=== PATIENT | female | born 1950 | race Caucasian/White ===

== ENCOUNTER → 2017-04-07 | Outpatient (POV) | payer MEDICARE, OTHER, SELFPAY | PROVIDERS: Visit Provider Podiatrist ==

== ENCOUNTER → 2017-04-21 | Outpatient (POV) | payer MEDICARE, OTHER, SELFPAY | PROVIDERS: Visit Provider Podiatrist ==

== ENCOUNTER → 2019-12-31 09:23 | Outpatient (CLI) | payer MEDICARE, OTHER, SELFPAY ==
--- NOTE | 2019-12-31 09:28 | XR_ITS ---
PROCEDURE: XR DEXA AXIAL SKELETON CLINICAL HISTORY: POST MENOPAUSAL, patient currently on calcium and vitamin-D COMPARISON: CR BONE3 BONE DENSITOMETRY(HIP:LT SPINE from 12/08/2016 FINDINGS: The total right hip BMD is 0.877 grams/centimeter squared with a T-score -0.5. The right femoral neck is 0.672 grams/centimeter squared with a T-score of -1.6. The total left hip BMD is 0.858 grams/centimeter squared with a T-score of -0.7 the left femoral neck is 0.710 grams/centimeter squared and the T-score is -1.2.. The lumbar spine BMD is 1.108 grams/centimeter squared with a T-score of 0.6.. IMPRESSION: Normal values lumbar spine and mild osteopenia both hips with slight decrease in T-scores for lumbar spine and bilateral hips compared to the previous study Based on these results a follow-up exam is recommended in 2 year. Dictated by: Dr. Rodney Taveras MD 12/31/2019 12:09 Dr. Rodney Taveras MD in [facility] 12/31/2019 12:09
--- NOTE | 2019-12-31 09:29 | MM_ITS ---
PROCEDURE: MM DIG SCREENING MAMM BI W/CAD Digital Breast Tomosynthesis Included CLINICAL INDICATION: SCREENING There is no personal or family history of breast cancer. COMPARISON: MG DMSB DIG MAMM-SCREEN ISAI W/CAD from 12/08/2016 TECHNIQUE: Standard CC and MLO images and 3D Tomosynthesis was obtained. R2 CAD reviewed. FINDINGS: Scattered fibroglandular densities are seen in both breasts on a background of fatty breast parenchyma. There are few benign-appearing microcalcifications in each breast. The nipples appear to be slightly inverted bilaterally and this was noted previously. There is no suspicious lesion and no suspicious microcalcifications. IMPRESSION: Fibrofatty parenchyma with no suspicious lesions seen BI-RAD Category: 2 Benign Finding(s) FOLLOW-UP: 1YR 1 Year Follow-up (A letter has been sent to the patient regarding results of the study.) Dictated by: Dr. Rodney Taveras MD 12/31/2019 11:01 Dr. Rodney Taveras MD in [facility] 12/31/2019 11:01
== END ==
PROVIDERS: PCP Family Medicine; Visit Provider Family Medicine
DX: Z12.31 Encounter for screening mammogram for malignant neoplasm of breast (principal); Z13.820 Encounter for screening for osteoporosis; Z78.0 Asymptomatic menopausal state
CPT/HCPCS: 77063; 77067; 77080

== ENCOUNTER → 2020-07-01 09:33 | Outpatient (CLI) | payer MEDICARE, OTHER, SELFPAY ==
--- NOTE | 2020-07-01 09:58 | ECG_ITS ---
APPROVED REPORT Exam: Resting ECG HR:86 bpm ECG Measurements Heart Rate 86 AXES DC 172 P 60 QRSd 66 QRS 54 QT 334 T 31 QTc 399 Conclusion Normal sinus rhythm Late r wave progression, no changes from prior Abnormal ECG Electronically signed by : Brayan Kendrick, 07/01/2020 10:18:25
== END ==
PROVIDERS: PCP Family Medicine; Visit Provider Ophthalmology
DX: Z01.818 Encounter for other preprocedural examination (principal)
CPT/HCPCS: 93005

== ENCOUNTER → 2021-04-05 09:01 | Outpatient (CLI) | payer MEDICARE, OTHER, SELFPAY | PROVIDERS: PCP Family Medicine; Visit Provider Nurse Practitioner | DX: U07.1 COVID-19 (principal) | CPT/HCPCS: C9803; U0003; U0005 ==

== ENCOUNTER → 2021-07-07 08:32 | Outpatient (CLI) | payer MEDICARE, OTHER, SELFPAY ==
[2021-07-07 08:38] LABS: Microscopic, Urine URINE MICROSCOPIC (MICROSCOPIC)
--- NOTE | 2021-07-07 09:07 | XR_ITS ---
FINAL REPORT TECHNIQUE: Bone mineral density was calculated of the lumbar spine and hip. CLINICAL HISTORY: post menopausal COMPARISON: December 31, 2019 FINDINGS: Using L1-4, the bone mineral density of the spine is 1.171 g/cm2, corresponding to T-score of 1.1. Was previously 1.108 corresponding with a T-score of -0.6. Somewhat improved but may be falsely elevated due to hypertrophic changes. Using the right hip, the bone mineral density of the femoral neck is 0.726 g/cm2, corresponding to a T-score of -1.1. Was previously 0.672 corresponding with a T-score of-1.6. Somewhat improved. IMPRESSION: Diminished bone mineral density of the left hip consistent with osteopenia. FRAX 10 year fracture risk is 8.7% for major osteoporotic fracture. Reviewed, Interpreted and Dictated by Félix Garcia III, MD Transcribed by Laury Vazquez Authenticated by Félix Garcia III, MD on 07/07/2021 11:29:08 AM [facility]
--- NOTE | 2021-07-07 09:09 | MM_ITS ---
PROCEDURE INFORMATION: Exam: MG Bilateral Screening 3D Mammography Exam date and time: 07/07/2021 9:09 AM Age: 71 years old Clinical indication: Encounter for screening mammogram for malignant neoplasm of breast TECHNIQUE: Imaging protocol: Bilateral Screening tomosynthesis and 2D mammography including computer-aided detection (CAD) when performed. COMPARISON: 1. MG MM DIG SCREENING MAMM BI W/CAD 12/31/2019 9:34 AM 2. MG DMSB DIG MAMM-SCREEN ISAI W/CAD 12/08/2016 2:27 PM FINDINGS: MAMMOGRAPHY: Breast composition: There are scattered areas of fibroglandular density. Mass: No suspicious masses. Architectural distortion: No suspicious distortion. Calcifications: No suspicious calcifications. Asymmetric density: None. Skin thickening: None. Axillary adenopathy: None. IMPRESSION: No mammographic evidence of malignancy. Annual screening is recommended unless otherwise clinically indicated. ASSESSMENT: BI-RADS Category 1: Negative
[2021-07-07 10:11] LABS: Anion Gap 13.3 mEq/L (5-15); Blood Urea Nitrogen 21 mg/dl (7-17); Calcium 9.7 mg/dl (8.4-10.2); Carbon Dioxide 30 mmol/L (22.0-30.0); Chloride 103 mmol/L (98-107); Estimated Glomerular Filt Rate 71 ml/min (>60); GFR (African American) 86 ML/MIN (>60); Glucose 120 mg/dl (74-100); Potassium 5.3 mmoL/L (3.5-5.1); Sodium 141 mmol/L (136-145)
[2021-07-07 10:42] LABS: Appearance,Urine CLEAR (Clear); Bilirubin,Urine Negative (Negative); Blood, Urine Negative (Negative); Color,Urine YELLOW (Yellow); Glucose,Urine (UA) Negative (Negative); Ketones,Urine Negative (Negative); Leukocyte Esterase,Urine 1+ (Negative); Nitrate,Urine Negative (Negative); PH,Urine 6.5 (5.0-8.5); Protein,Urine Negative (Negative); Urobilinogen,Urine 0.2 EU/dl (0.2)
[2021-07-07 10:59] LABS: Bacteria,Urine 1+ /lpf; RBC,Urine Occasional #/hpf (0-3)
== END ==
PROVIDERS: Nurse Practitioner Family; PCP Family Medicine; Visit Provider Family Medicine
DX: Z12.31 Encounter for screening mammogram for malignant neoplasm of breast (principal); Z78.0 Asymptomatic menopausal state; R82.81 Pyuria; E87.5 Hyperkalemia; B96.20 Unspecified Escherichia coli [E. coli] as the cause of diseases classified elsewhere
CPT/HCPCS: 36415; 77063; 77067; 77080; 80048; 81001; 87086; 87088; 87186

== ENCOUNTER 2023-06-28 10:03 | Outpatient (CLI) | payer MEDICARE, OTHER, SELFPAY ==
--- NOTE | 2023-06-28 10:12 | MM_ITS ---
PROCEDURE INFORMATION: Exam: MG Bilateral Screening 3D Mammography Exam date and time: 06/28/2023 10:07 AM Age: 73 years old Clinical indication: Screening mammogram TECHNIQUE: Imaging protocol: Bilateral Screening tomosynthesis and 2D mammography including computer-aided detection (CAD) when performed.Limited assessment due to difficulty positioning the patient. COMPARISON: 1. MG MM DIG SCREENING MAMM BI W/CAD 07/07/2021 9:19 AM 2. MG MM DIG SCREENING MAMM BI W/CAD 12/31/2019 9:34 AM 3. MG DMSB DIG MAMM-SCREEN ISAI W/CAD 12/08/2016 2:27 PM FINDINGS: MAMMOGRAPHY: Breast composition: There are scattered areas of fibroglandular density. Mass: None. Architectural distortion: No new or suspicious architectural distortion. Calcifications: No new or suspicious calcifications are present Asymmetric density: No new or suspicious asymmetric density is present Skin thickening: None. Axillary adenopathy: None. IMPRESSION: No mammographic evidence of malignancy. Recommend annual screening mammography unless otherwise clinically indicated. ASSESSMENT: BI-RADS category 1: Negative
== END 2023-06-28 23:59 ==
PROVIDERS: PCP Family Medicine; Visit Provider Family Medicine
DX: Z12.31 Encounter for screening mammogram for malignant neoplasm of breast (principal)
CPT/HCPCS: 77063; 77067

== ENCOUNTER 2023-07-31 14:45 | Emergency (ER) | payer MEDICARE, OTHER, SELFPAY ==
[2023-07-31] VITALS (16 sets, daily range): BP systolic 100–133; BP diastolic 32–74; PULSE 63–101; RESP 14–20; TEMP 36.4; O2SAT 95–98; BMI 30.7
--- NOTE | 2023-07-31 15:10 | PC.NURSE ---
Mario ZACARIAS at [facility] for pt eval
--- NOTE | 2023-07-31 15:14 | ED_ITS ---
<Statement entered by Melinda Martínez DO - 08/01/23 14:55> I was consulted by the ANEUDY, and we discussed the complexity of the problems being addressed. I approved the treatment and management plan for this patient's care in the emergency department, thus performing a substantive portion of the medical decision making. Melinda Martínez DO Discharge Plan Disposition Patient Disposition: Xfer Other Condition: Serious Prescriptions Prescriptions: No Action clopidogrel 75 mg tablet 75 mg PO DAILY 90 Days Patient Comments: atorvastatin 40 mg tablet 40 mg PO HS 90 Days Patient Comments: lisinopril 20 mg tablet 20 mg PO BID timolol maleate 0.5 % drops OPHTHALMIC (DME) pen needle, diabetic 31 gauge x 5/16 needle See Rx Instructions .ROUTE .MEDSUPPLY Qty: 1,200 Rx Instructions: As directed insulin degludec 200 unit/mL (3 mL) insulin pen 26 unit SQ ONCE cholecalciferol (vitamin D3) 25 mcg (1,000 unit) capsule 25 mcg PO DAILY Patient Comments: States she is taking 1,200 units daily dorzolamide-timolol 22.3-6.8 mg/mL drops 1 drp OPHTHALMIC Patient Comments: INSTILL 1 DROP INTO BOTH EYES 2 TIMES A DAY Referrals Follow up/Referrals: Heber Peterson MD [Primary Care Provider] - See instructions Clinical Impressions Clinical Impression: Choledocholithiasis, Acute gallstone pancreatitis Cholelithiasis Qualifiers: Cholelithiasis location: gallbladder Stand Alone Forms Stand Alone Forms: Transfer Record - ED Instructions Patient Instructions: DI for Diarrhea and Traveler's Diarrhea -- Adult, DI for Diarrhea and Traveler's Diarrhea -- Child, DI for Nausea -- Adult, DI for Nausea -- Child Discharge ED Provider: Melinda Martínez General Adult HPI <HORACE Carl - Last Filed: 07/31/23 19:39> General Chief complaint: Nausea/Vomiting/Diarrhea Stated complaint: vomitting, back pain Time Seen by Provider: 07/31/23 14:51 Mode of Arrival: Ambulatory Source of Information: Patient Limitations: No Limitations Description of Symptoms (Recalled from ER Triage Doc. by RN): pt reports nausea, vomiting, and lower back pain in the center of her back since 9am, denies diarrhea, denies any injury, denies blood in her vomit, denies any abd pain History of Present Illness HPI narrative: Patient presents for nausea vomiting that began at 9 AM this morning. Patient also reports very low back pain in the center of her back but denies diarrhea chest pain shortness of breath fever chills hemoptysis hematochezia melena dysuria. Related Data Home Medications Medication Instructions Recorded Confirmed atorvastatin 40 mg tablet 40 mg PO HS Cholesterol 90 days 06/27/17 05/31/23 clopidogrel 75 mg tablet 75 mg PO DAILY Blood thinner 90 06/27/17 05/31/23 days lisinopril 20 mg tablet 20 mg PO BID htn 10/11/18 05/31/23 pen needle, diabetic 31 gauge x #1,200 ea 06/26/19 05/31/23/16 timolol maleate 0.5 % eye drops ophthalmic (eye) 06/26/19 05/31/23 cholecalciferol (vitamin D3) 25 25 mcg PO DAILY 01/08/20 05/31/23 mcg (1,000 unit) capsule dorzolamide 22.3 mg-timolol 6.8 1 drp ophthalmic (eye) 08/19/21 05/31/23 mg/mL eye drops insulin degludec 200 unit/mL (3 26 unit SQ ONCE 08/19/21 05/31/23 mL) subcutaneous pen Allergies Allergy/AdvReac Type Severity Reaction Status Date / Time No Known Allergies Allergy Verified 05/31/23 10:15 [facility] <HORACE Carl - Last Filed: 07/31/23 19:39> [facility] Disclaimer: The information contained in this section may have been updated after the patient was seen, as this information can be updated by other users. Medical History CVA (cerebral vascular accident) HLD (hyperlipidemia) Hypertension T2DM (type 2 diabetes mellitus) Surgical History H/O tubal ligation Family History Other Diabetes Hyperlipidemia Hypertension Social History Smoking Status: Never smoker alcohol intake: never substance use type: denies use current occupational status: retired Travel in the last 8 weeks: None <HORACE Carl - Last Filed: 07/31/23 19:39> ROS Obtained: Yes Systems reviewed as appropriate & no additional complaints except as documented Physical Exam <HORACE Carl - Last Filed: 07/31/23 19:39> General General appearance: alert and in no apparent distress Head Head exam: atraumatic and normal inspection Eye Eye exam: Present normal appearance, PERRL and EOMI ENT ENT exam: Present normal exam, normal oropharynx and mucous membranes moist Neck Neck exam: Present normal inspection and full ROM Chest Chest inspection: Present normal inspection and symmetric chest wall rise Respiratory Respiratory exam: Present normal lung sounds bilaterally; Absent respiratory distress Cardiovascular Cardiovascular exam: Present regular rate and normal rhythm Abdominal Exam Abdominal exam: Present soft, tenderness (Very mild diffuse tenderness to palpation) and normal bowel sounds; Absent distention, guarding, rebound or rigidity Extremities Exam Extremities exam: Present normal inspection, full ROM and other (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 Victor Manuel Inquiry Pt receiving controlled substance: No Vital Signs: 07/31/23 14:47 07/31/23 15:31 07/31/23 16:01 Temperature 97.6 F Temperature Source Oral Pulse Rate 81 96 H Pulse Rate [Left Radial] 63 Respiratory Rate 18 Blood Pressure 128/48 L 124/74 Blood Pressure [Right Arm] 127/63 Blood Pressure Mean 74 79 Blood Pressure Mean [Right Arm] 84 Blood Pressure Source [Right Arm] Automatic Cuff Blood Pressure Position [Right Arm] Sitting 02 Sat by Pulse Oximetry 97 98 96 Oxygen Delivery Method Room Air 07/31/23 16:30 07/31/23 18:09 07/31/23 18:30 Temperature Temperature Source Pulse Rate 101 H 96 H 95 H Pulse Rate [Left Radial] Respiratory Rate 18 18 Blood Pressure 110/32 L 104/49 L 111/60 Blood Pressure [Right Arm] Blood Pressure Mean 59 67 70 Blood Pressure Mean [Right Arm] Blood Pressure Source [Right Arm] Blood Pressure Position [Right Arm] 02 Sat by Pulse Oximetry 97 98 95 Oxygen Delivery Method 07/31/23 19:00 07/31/23 19:30 07/31/23 20:00 Temperature Temperature Source Pulse Rate 86 82 84 Pulse Rate [Left Radial] Respiratory Rate 18 20 16 Blood Pressure 101/66 L 118/66 127/74 Blood Pressure [Right Arm] Blood Pressure Mean 77 81 91 Blood Pressure Mean [Right Arm] Blood Pressure Source [Right Arm] Blood Pressure Position [Right Arm] 02 Sat by Pulse Oximetry 95 96 97 Oxygen Delivery Method Room Air Room Air Room Air 07/31/23 20:30 07/31/23 21:00 07/31/23 21:33 Temperature Temperature Source Pulse Rate 87 83 83 Pulse Rate [Left Radial] Respiratory Rate 20 14 Blood Pressure 100/60 L 110/65 133/69 Blood Pressure [Right Arm] Blood Pressure Mean 76 72 Blood Pressure Mean [Right Arm] Blood Pressure Source [Right Arm] Blood Pressure Position [Right Arm] 02 Sat by Pulse Oximetry 96 98 97 Oxygen Delivery Method Room Air Room Air 07/31/23 22:00 07/31/23 22:30 07/31/23 23:00 Temperature Temperature Source Pulse Rate Pulse Rate [Left Radial] Respiratory Rate Blood Pressure 111/64 117/65 103/57 L Blood Pressure [Right Arm] Blood Pressure Mean 82 80 73 Blood Pressure Mean [Right Arm] Blood Pressure Source [Right Arm] Blood Pressure Position [Right Arm] 02 Sat by Pulse Oximetry Oxygen Delivery Method 07/31/23 23:30 08/01/23 00:00 08/01/23 00:30 Temperature Temperature Source Pulse Rate 74 Pulse Rate [Left Radial] Respiratory Rate Blood Pressure 123/61 117/59 L 123/61 Blood Pressure [Right Arm] Blood Pressure Mean 79 79 Blood Pressure Mean [Right Arm] Blood Pressure Source [Right Arm] Blood Pressure Position [Right Arm] 02 Sat by Pulse Oximetry 96 Oxygen Delivery Method 08/01/23 01:07 08/01/23 02:00 08/01/23 02:31 Temperature 98.5 F Temperature Source Pulse Rate 72 72 66 Pulse Rate [Left Radial] Respiratory Rate 18 Blood Pressure 124/60 131/59 L 131/56 L Blood Pressure [Right Arm] Blood Pressure Mean Blood Pressure Mean [Right Arm] Blood Pressure Source [Right Arm] Blood Pressure Position [Right Arm] 02 Sat by Pulse Oximetry 94 L 95 Oxygen Delivery Method Lab Data Lab results reviewed: Yes I reviewed the patient's lab results. Lab Results 07/31/23 15:20: Urine Color Yellow, Urine Appearance Sl cloudy, Urine pH 7.5, Ur Specific [place] 1.015, Urine Protein Trace, Urine Glucose (UA) Negative, Urine Ketones Negative, Urine Blood 1+, Urine Nitrate Negative, Urine Bilirubin 1+ A, Urine Urobilinogen 1.0, Ur Leukocyte Esterase Negative, Urine RBC Occasional, Urine WBC Occasional, Ur Squamous Epith Cells Occasional, Amorphous Sediment 2+, Urine Bacteria Trace 07/31/23 15:30: WBC 14.3 H, RBC 4.36, Hgb 14.0, Hct 43.4, MCV 99.6 H, MCH 32.2 H , MCHC 32.3, RDW 12.8, Plt Count 252, MPV 8.9, Neut % (Auto) 92.4 H, Lymph % (Auto) 3.6 L, [place] % (Auto) 2.9, Eos % (Auto) 0.8, Baso % (Auto) 0.3, Neut # (Auto) 13.2 H, Lymph # (Auto) 0.5 L, [place] # (Auto) 0.4, Eos # (Auto) 0.1, Baso # (Auto) 0.0, Total Counted 100, Neutrophils % (Manual) 89 H, Lymphocytes % (Manual) 9 L, Monocytes % (Manual) 2, Platelet Estimate Normal, RBC Morphology Normal, Sodium 141, Potassium 3.3 L, Chloride 105, Carbon Dioxide 29, Anion Gap 10.3, BUN 26 H, Creatinine 1.00, Estimated Creat Clear 55, Estimated GFR 55 L, Est GFR ( Amer) 66, Glucose 182 H, Calcium 10.5 H, Magnesium 1.9, Total Bilirubin 2.8 H, AST 648 H*, ALT 529 H*, Alkaline Phosphatase 177 H, Total Protein 7.5, Albumin 4.5, Globulin 3.0, Albumin/Globulin Ratio 1.5, Lipase 44100 H 07/31/23 15:45: SARS-CoV-2 (PCR) Not detected, Influenza A Untype (PCR) Not detected, Influenza Type B (PCR) Not detected 07/31/23 17:48: Lactate 3.0 H 07/31/23 22:08: Lactate 1.9 07/31/23 15:30 07/31/23 15:30 Orders (Tests/Meds): ED MEDICATIONS Discontinued Medications Generic Name Dose Route Start Last Admin Trade Name Freq PRN Reason Stop Dose Admin Acetaminophen 1,000 mg 07/31/23 15:16 07/31/23 15:23 Acetaminophen 1,000mg/100ml Vial IV 07/31/23 15:17 1,000 mg ONCE ONE Administration Lactated Ringer's 1,000 mls @ 999 mls/hr 07/31/23 15:16 07/31/23 15:23 Lactated Ringer's 1000 Ml Bag IV 07/31/23 16:16 999 mls/hr .Q1H1M ONE Administration Piperacillin Sod/Tazobactam 50 mls @ 100 mls/hr 07/31/23 17:00 07/31/23 22:42 Sod 3.375 gm/ Sodium Chloride IV 08/10/23 16:59 100 mls/hr Q6H JIMMY Administration Lactated Ringer's 2,070 mls @ 1,035 mls/hr 07/31/23 16:53 07/31/23 23:15 Lactated Ringer's 1000 Ml Bag 30 ml/kg infuse over 2 hr (2070 ml) 07/31/23 18:52 Not Given IV .Q2H ONE Lactated Ringer's 1,000 mls @ 100 mls/hr 07/31/23 22:45 07/31/23 23:15 Lactated Ringer's 1000 Ml Bag IV 08/30/23 22:44 100 mls/hr .Q10H JIMMY Administration Iopamidol 75 ml 07/31/23 16:19 07/31/23 16:20 Iopamidol-370 (76%);100ml Bottle IV 07/31/23 16:20 75 ml ONCE ONE Administration Ketorolac Tromethamine 15 mg 07/31/23 15:16 07/31/23 15:23 Ketorolac 30mg/Ml Vial IV 07/31/23 15:17 15 mg ONCE ONE Administration Ondansetron HCl 4 mg 07/31/23 15:16 07/31/23 15:23 Ondansetron 4mg/2ml Vial IV 07/31/23 15:17 4 mg ONCE ONE Administration Ondansetron HCl 8 mg 07/31/23 17:10 07/31/23 17:12 Ondansetron 4mg/2ml Vial IV 07/31/23 17:11 8 mg ONCE ONE Administration Sodium Chloride 10 ml 07/31/23 16:19 07/31/23 16:20 Sodium Chloride 0.9% 10ml Syr (Rad Only) IV 07/31/23 16:20 10 ml ONCE ONE Administration ORDERS Category Date Time Status CT abdomen pelvis w con Stat Cat Scan 07/31/23 15:47 Completed US gallbladder Stat Exams 07/31/23 16:13 Completed CBC w/Auto Diff [Complete Blood Count Auto Diff] Stat Lab 07/31/23 15:30 Completed CMP [Comprehensive Metabolic Panel] Stat Lab 07/31/23 15:30 Completed Lactic Acid Follow Up (RFLX 1) Stat Lab 07/31/23 22:08 Completed Lactic Acid Stat Lab 07/31/23 17:48 Completed Lipase Stat Lab 07/31/23 15:30 Completed Magnesium Stat Lab 07/31/23 15:30 Completed Rapid PCR Covid and Flu A/B Stat Lab 07/31/23 15:45 Completed UA [Urinalysis and Microscopic] Stat Lab 07/31/23 15:20 Completed Blood Culture Stat Micro 07/31/23 17:48 Received Medical Decision Narrative: In summary patient is a 73-year-old female who presents to the emergency department for evaluation of nausea vomiting and low back pain. Patient is hemodynamically stable upon arrival, afebrile. Physical exam is remarkable for tenderness to palpation of the right paraspinal muscles without any radicular or neuropathic signs. 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 Patient has no CVA tenderness to percussion. Abdominal exam is mildly diffusely tender with no rebound no guarding no rigidity and normal bowel sounds. Differential diagnosis includes urinary tract infection, acute cholecystitis, gastroenteritis, small bowel obstruction is less likely as the patient has never had abdominal surgery etc. Initial workup will be conducted with hematologic labs urinalysis CT scan abdomen pelvis with contrast. Initial interventions include crystalloid bolus, Toradol Tylenol and Zofran. Initial workup reviewed by me shows no elevated white count with a left shift, transaminitis hyperbilirubinemia, and elevated lipase at the remainder of her laboratory investigations are nonactionable. My informal review of her CT scan abdomen pelvis shows a distended gallbladder with stones and peripancreatic stranding with the radiologist read pending. I subsequently ordered a right upper quadrant ultrasound that showed normal biliary tree, stones and a dilated gallbladder without any evidence of wall thickening and a normal pancreatic duct on ultrasound according to the radiologist.. Upon repeat evaluation patient has had resolution of her pain however has still had fairly persistent nausea that is currently controlled after second dose of Zofran. Given this he has shared decision making I discussed with the patient the need for evaluation by brake tester and possibly general surgery. Patient was agreeable to transfer. We were able to find a transfer to the [facility] for [place] <Shubham Mendoza MD - Last Filed: 08/01/23 02:34> Vital Signs: 07/31/23 14:47 07/31/23 15:31 07/31/23 16:01 Temperature 97.6 F Temperature Source Oral Pulse Rate 81 96 H Pulse Rate [Left Radial] 63 Respiratory Rate 18 Blood Pressure 128/48 L 124/74 Blood Pressure [Right Arm] 127/63 Blood Pressure Mean 74 79 Blood Pressure Mean [Right Arm] 84 Blood Pressure Source [Right Arm] Automatic Cuff Blood Pressure Position [Right Arm] Sitting 02 Sat by Pulse Oximetry 97 98 96 Oxygen Delivery Method Room Air 07/31/23 16:30 07/31/23 18:09 07/31/23 18:30 Temperature Temperature Source Pulse Rate 101 H 96 H 95 H Pulse Rate [Left Radial] Respiratory Rate 18 18 Blood Pressure 110/32 L 104/49 L 111/60 Blood Pressure [Right Arm] Blood Pressure Mean 59 67 70 Blood Pressure Mean [Right Arm] Blood Pressure Source [Right Arm] Blood Pressure Position [Right Arm] 02 Sat by Pulse Oximetry 97 98 95 Oxygen Delivery Method 07/31/23 19:00 07/31/23 19:30 07/31/23 20:00 Temperature Temperature Source Pulse Rate 86 82 84 Pulse Rate [Left Radial] Respiratory Rate 18 20 16 Blood Pressure 101/66 L 118/66 127/74 Blood Pressure [Right Arm] Blood Pressure Mean 77 81 91 Blood Pressure Mean [Right Arm] Blood Pressure Source [Right Arm] Blood Pressure Position [Right Arm] 02 Sat by Pulse Oximetry 95 96 97 Oxygen Delivery Method Room Air Room Air Room Air 07/31/23 20:30 07/31/23 21:00 07/31/23 21:33 Temperature Temperature Source Pulse Rate 87 83 83 Pulse Rate [Left Radial] Respiratory Rate 20 14 Blood Pressure 100/60 L 110/65 133/69 Blood Pressure [Right Arm] Blood Pressure Mean 76 72 Blood Pressure Mean [Right Arm] Blood Pressure Source [Right Arm] Blood Pressure Position [Right Arm] 02 Sat by Pulse Oximetry 96 98 97 Oxygen Delivery Method Room Air Room Air 07/31/23 22:00 07/31/23 22:30 07/31/23 23:00 Temperature Temperature Source Pulse Rate Pulse Rate [Left Radial] Respiratory Rate Blood Pressure 111/64 117/65 103/57 L Blood Pressure [Right Arm] Blood Pressure Mean 82 80 73 Blood Pressure Mean [Right Arm] Blood Pressure Source [Right Arm] Blood Pressure Position [Right Arm] 02 Sat by Pulse Oximetry Oxygen Delivery Method 07/31/23 23:30 08/01/23 00:00 08/01/23 00:30 Temperature Temperature Source Pulse Rate 74 Pulse Rate [Left Radial] Respiratory Rate Blood Pressure 123/61 117/59 L 123/61 Blood Pressure [Right Arm] Blood Pressure Mean 79 79 Blood Pressure Mean [Right Arm] Blood Pressure Source [Right Arm] Blood Pressure Position [Right Arm] 02 Sat by Pulse Oximetry 96 Oxygen Delivery Method 08/01/23 01:07 08/01/23 02:00 08/01/23 02:31 Temperature 98.5 F Temperature Source Pulse Rate 72 72 66 Pulse Rate [Left Radial] Respiratory Rate 18 Blood Pressure 124/60 131/59 L 131/56 L Blood Pressure [Right Arm] Blood Pressure Mean Blood Pressure Mean [Right Arm] Blood Pressure Source [Right Arm] Blood Pressure Position [Right Arm] 02 Sat by Pulse Oximetry 94 L 95 Oxygen Delivery Method Lab Data Lab Results 07/31/23 15:20: Urine Color Yellow, Urine Appearance Sl cloudy, Urine pH 7.5, Ur Specific [place] 1.015, Urine Protein Trace, Urine Glucose (UA) Negative, Urine Ketones Negative, Urine Blood 1+, Urine Nitrate Negative, Urine Bilirubin 1+ A, Urine Urobilinogen 1.0, Ur Leukocyte Esterase Negative, Urine RBC Occasional, Urine WBC Occasional, Ur Squamous Epith Cells Occasional, Amorphous Sediment 2+, Urine Bacteria Trace 07/31/23 15:30: WBC 14.3 H, RBC 4.36, Hgb 14.0, Hct 43.4, MCV 99.6 H, MCH 32.2 H , MCHC 32.3, RDW 12.8, Plt Count 252, MPV 8.9, Neut % (Auto) 92.4 H, Lymph % (Auto) 3.6 L, [place] % (Auto) 2.9, Eos % (Auto) 0.8, Baso % (Auto) 0.3, Neut # (Auto) 13.2 H, Lymph # (Auto) 0.5 L, [place] # (Auto) 0.4, Eos # (Auto) 0.1, Baso # (Auto) 0.0, Total Counted 100, Neutrophils % (Manual) 89 H, Lymphocytes % (Manual) 9 L, Monocytes % (Manual) 2, Platelet Estimate Normal, RBC Morphology Normal, Sodium 141, Potassium 3.3 L, Chloride 105, Carbon Dioxide 29, Anion Gap 10.3, BUN 26 H, Creatinine 1.00, Estimated Creat Clear 55, Estimated GFR 55 L, Est GFR ( Amer) 66, Glucose 182 H, Calcium 10.5 H, Magnesium 1.9, Total Bilirubin 2.8 H, AST 648 H*, ALT 529 H*, Alkaline Phosphatase 177 H, Total Protein 7.5, Albumin 4.5, Globulin 3.0, Albumin/Globulin Ratio 1.5, Lipase 50719 H 07/31/23 15:45: SARS-CoV-2 (PCR) Not detected, Influenza A Untype (PCR) Not detected, Influenza Type B (PCR) Not detected 07/31/23 17:48: Lactate 3.0 H 07/31/23 22:08: Lactate 1.9 Orders (Tests/Meds): ED MEDICATIONS Discontinued Medications Generic Name Dose Route Start Last Admin Trade Name Freq PRN Reason Stop Dose Admin Acetaminophen 1,000 mg 07/31/23 15:16 07/31/23 15:23 Acetaminophen 1,000mg/100ml Vial IV 07/31/23 15:17 1,000 mg ONCE ONE Administration Lactated Ringer's 1,000 mls @ 999 mls/hr 07/31/23 15:16 07/31/23 15:23 Lactated Ringer's 1000 Ml Bag IV 07/31/23 16:16 999 mls/hr .Q1H1M ONE Administration Piperacillin Sod/Tazobactam 50 mls @ 100 mls/hr 07/31/23 17:00 07/31/23 22:42 Sod 3.375 gm/ Sodium Chloride IV 08/10/23 16:59 100 mls/hr Q6H JIMMY Administration Lactated Ringer's 2,070 mls @ 1,035 mls/hr 07/31/23 16:53 07/31/23 23:15 Lactated Ringer's 1000 Ml Bag 30 ml/kg infuse over 2 hr (2070 ml) 07/31/23 18:52 Not Given IV .Q2H ONE Lactated Ringer's 1,000 mls @ 100 mls/hr 07/31/23 22:45 07/31/23 23:15 Lactated Ringer's 1000 Ml Bag IV 08/30/23 22:44 100 mls/hr .Q10H JIMMY Administration Iopamidol 75 ml 07/31/23 16:19 07/31/23 16:20 Iopamidol-370 (76%);100ml Bottle IV 07/31/23 16:20 75 ml ONCE ONE Administration Ketorolac Tromethamine 15 mg 07/31/23 15:16 07/31/23 15:23 Ketorolac 30mg/Ml Vial IV 07/31/23 15:17 15 mg ONCE ONE Administration Ondansetron HCl 4 mg 07/31/23 15:16 07/31/23 15:23 Ondansetron 4mg/2ml Vial IV 07/31/23 15:17 4 mg ONCE ONE Administration Ondansetron HCl 8 mg 07/31/23 17:10 07/31/23 17:12 Ondansetron 4mg/2ml Vial IV 07/31/23 17:11 8 mg ONCE ONE Administration Sodium Chloride 10 ml 07/31/23 16:19 07/31/23 16:20 Sodium Chloride 0.9% 10ml Syr (Rad Only) IV 07/31/23 16:20 10 ml ONCE ONE Administration ORDERS Category Date Time Status CT abdomen pelvis w con Stat Cat Scan 07/31/23 15:47 Completed US gallbladder Stat Exams 07/31/23 16:13 Completed CBC w/Auto Diff [Complete Blood Count Auto Diff] Stat Lab 07/31/23 15:30 Completed CMP [Comprehensive Metabolic Panel] Stat Lab 07/31/23 15:30 Completed Lactic Acid Follow Up (RFLX 1) Stat Lab 07/31/23 22:08 Completed Lactic Acid Stat Lab 07/31/23 17:48 Completed Lipase Stat Lab 07/31/23 15:30 Completed Magnesium Stat Lab 07/31/23 15:30 Completed Rapid PCR Covid and Flu A/B Stat Lab 07/31/23 15:45 Completed UA [Urinalysis and Microscopic] Stat Lab 07/31/23 15:20 Completed Blood Culture Stat Micro 07/31/23 17:48 Received Medical Decision Narrative: In summary patient is a 73-year-old female who presents to the emergency department for evaluation of nausea vomiting and low back pain. Patient is hemodynamically stable upon arrival, afebrile. Physical exam is remarkable for tenderness to palpation of the right paraspinal muscles without any radicular or neuropathic signs. 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 Patient has no CVA tenderness to percussion. Abdominal exam is mildly diffusely tender with no rebound no guarding no rigidity and normal bowel sounds. Differential diagnosis includes urinary tract infection, acute cholecystitis, gastroenteritis, small bowel obstruction is less likely as the patient has never had abdominal surgery etc. Initial workup will be conducted with hematologic labs urinalysis CT scan abdomen pelvis with contrast. Initial interventions include crystalloid bolus, Toradol Tylenol and Zofran. Initial workup reviewed by me shows no elevated white count with a left shift, transaminitis hyperbilirubinemia, and elevated lipase at the remainder of her laboratory investigations are nonactionable. My informal review of her CT scan abdomen pelvis shows a distended gallbladder with stones and peripancreatic stranding with the radiologist read pending. I subsequently ordered a right upper quadrant ultrasound that showed normal biliary tree, stones and a dilated gallbladder without any evidence of wall thickening and a normal pancreatic duct on ultrasound according to the radiologist.. Upon repeat evaluation patient has had resolution of her pain however has still had fairly persistent nausea that is currently controlled after second dose of Zofran. Given this he has shared decision making I discussed with the patient the need for evaluation by brake tester and possibly general surgery. Patient was agreeable to transfer. We were able to find a transfer to the [facility]. Kelly WARREN: I assumed care of the patient at the time of handoff from the prior provider. Presentation is most consistent with acute gallstone pancreatitis without acute cholecystitis. On reassessment patient ivett hemodynamically stable. The bed at never opened up. Instead, the patient was ultimately transferred to [facility], accepting physician Dr. Dafne Lira. Patient discharged in stable condition. I was consulted by the ANEUDY, and we discussed the complexity of the problems being addressed. I approved the treatment and management plan for this patient?s care in the Emergency Department, thus performing a substantive portion of the medical decision making. Shubham Mendoza MD Critical Care <HORACE Carl - Last Filed: 07/31/23 19:39> Critical Care Time Critical Care Time: No
[2023-07-31] MEDS: KETOROLAC 30MG/ML VIAL 15 MG IV (15:23)
[2023-07-31] MEDS: ACETAMINOPHEN 1,000MG/100ML VIAL 1000 MG IV (15:23)
[2023-07-31] MEDS: ONDANSETRON 4MG/2ML VIAL 4 MG IV (15:23)
[2023-07-31] MEDS: LACTATED RINGERS 1000ML 1,000 ML 999 ML IV (15:23)
[2023-07-31 15:26] LABS: Microscopic, Urine URINE MICROSCOPIC (MICROSCOPIC)
[2023-07-31 15:29] LABS: Appearance,Urine SL CLOUDY (Clear); Blood, Urine 1+ (Negative); Color,Urine YELLOW (Yellow); Glucose,Urine (UA) Negative (Negative); Ketones,Urine Negative (Negative); Leukocyte Esterase,Urine Negative (Negative); Nitrate,Urine Negative (Negative); PH,Urine 7.5 (5.0-8.5); Protein,Urine TRACE (Negative); Specific Gravity, Urine 1.015 (1.005-1.030)
[2023-07-31 15:32] LABS: Bilirubin,Urine 1+ (Negative)
[2023-07-31 15:42] LABS: Basophils % 0.3 % (0.1-2.0); Eosinophils # 0.1 K/mm3 (0.0-0.4); Eosinophils % 0.8 % (0.1-12.0); Hematocrit 43.4 % (37.0-47.0); Lymphocytes # 0.5 K/mm3 (0.7-4.5); Lymphocytes % 3.6 % (10-50); Mean Corpuscular HGB Conc 32.3 g/dL (31.8-35.4); Mean Corpuscular Hemoglobin 32.2 pg (27.0-31.2); Mean Corpuscular Volume 99.6 fl (81-99); Mean Platelet Volume 8.9 fl (7.4-10.4); Monocytes # 0.4 K/mm3 (0.1-1.0); Monocytes % 2.9 % (1.7-9.3); Neutrophils # 13.2 K/mm3 (1.8-7.8); Neutrophils % 92.4 % (37.0-80.0); Platelet Count 252 K/mm3 (142-424); Red Blood Count 4.36 M/mm3 (4.20-5.40); Red Cell Distribution Width 12.8 % (11.5-17.5); White Blood Count 14.3 K/mm3 (4.8-10.8)
--- NOTE | 2023-07-31 15:47 | CT_ITS ---
PROCEDURE INFORMATION: Exam: CT Abdomen And Pelvis With Contrast Exam date and time: 07/31/2023 4:09 PM Age: 73 years old Clinical indication: Nausea and vomiting; Abdominal pain; Additional info: Acute abdominal pain nausea vomiting TECHNIQUE: Imaging protocol: Computed tomography of the abdomen and pelvis with contrast. Radiation optimization: All CT scans at this facility use at least one of these dose optimization techniques: automated exposure control; mA and/or kV adjustment per patient size (includes targeted exams where dose is matched to clinical indication); or iterative reconstruction. Contrast material: ISOVUE; Contrast volume: 75 ml; Contrast route: IV; COMPARISON: No relevant prior studies available. FINDINGS: Lungs: Scattered areas of bronchial wall thickening which are likely chronic inflammatory. A few areas of subpleural reticulation are noted, nonspecific. Liver: Normal. Gallbladder and bile ducts: There is cholelithiasis within a mildly distended gallbladder. There is mild central intra and extrahepatic biliary ductal dilatation. Pancreas: Peripancreatic stranding is noted. There is fatty replacement of the pancreas. Spleen: Normal. Adrenal glands: The adrenal glands appear normal. Kidneys and ureters: The kidneys demonstrate thin cortices compatible with atrophy. Stomach and bowel: The stomach, small bowel, and colon are well-distended and show no evidence of wall thickening, masses, or obstruction. Appendix: No evidence of appendicitis. Intraperitoneal space: Unremarkable. Vasculature: There is atherosclerotic disease of the visualized aorta and its major branch vessels. Lymph nodes: Suspect a small lymph node adjacent to the gallbladder (image 36 series 5). Urinary bladder: Unremarkable as visualized. Reproductive: No acute process. Bones/joints: There is diffuse degenerative disease of the visualized osseous structures. Soft tissues: Unremarkable. IMPRESSION: Peripancreatic stranding which could reflect pancreatitis in the appropriate clinical setting. Cholelithiasis within a mildly distended gallbladder.
[2023-07-31 15:49] LABS: MANUAL DIFFERENTIAL MANUAL DIFFERENTIAL (MANUAL DIFF)
[2023-07-31 15:51] LABS: Chloride 105 mmol/L (98-107); Potassium 3.3 mmoL/L (3.5-5.1); Sodium 141 mmol/L (136-145)
[2023-07-31 15:53] LABS: Coronavirus 19, PCR Not Detected (NotDetected); Influenza A, PCR Not Detected (NotDetected); Influenza B, PCR Not Detected (NotDetected)
[2023-07-31 15:54] LABS: Alanine Aminotransferase 529 U/L (12-78); Albumin Level 4.5 g/dl (3.5-5.0); Albumin/Globulin Ratio 1.5 (1.1-1.8); Alkaline Phosphatase 177 U/L (38-126); Anion Gap 10.3 mEq/L (5-15); Aspartate Amino Transferase 648 U/L (14-36); Bilirubin,Total 2.8 mg/dl (0.2-1.3); Blood Urea Nitrogen 26 mg/dl (7-17); Calcium 10.5 mg/dl (8.4-10.2); Carbon Dioxide 29 mmol/L (22.0-30.0); Creatinine Clearance Estimated 55 mL/min (50-200); Estimated Glomerular Filt Rate 55 ml/min (>60); GFR (African American) 66 ML/MIN (>60); Glucose 182 mg/dl (74-100); Total Protein,Serum 7.5 g/dl (6.3-8.2)
[2023-07-31 15:55] LABS: Magnesium 1.9 mg/dl (1.6-2.3)
[2023-07-31 16:02] LABS: Amorphous Sediment,Urine 2+ /lpf; Bacteria,Urine Trace /lpf; RBC,Urine Occasional #/hpf (0-3); Squamous Epithelial Cell,Urine Occasional #/hpf (0-5); WBC,Urine Occasional #/hpf (0-3)
--- NOTE | 2023-07-31 16:13 | US_ITS ---
PROCEDURE INFORMATION: Exam: US Abdomen, Limited; Right Upper Quadrant Exam date and time: 07/31/2023 4:34 PM Age: 73 years old Clinical indication: Nausea and vomiting; Additional info: Right quad pain TECHNIQUE: Imaging protocol: Real time ultrasound of the abdomen with image documentation. Limited exam focused on the right upper quadrant. COMPARISON: CT ABDOMEN PELVIS W CON 07/31/2023 4:09 PM FINDINGS: Liver: The liver appears normal in size and echogenicity, with no evidence of focal hepatic lesions or intrahepatic ductal dilatation. Portal and hepatic veins are patent and show no signs of thrombosis. Gallbladder: There is cholelithiasis within an otherwise normal gallbladder. Biliary ducts: The common bile duct measures within normal limits, and there are no signs of dilatation. Pancreas: Visualized pancreas is unremarkable. Right kidney: The right kidney appears somewhat atrophic without hydronephrosis. IMPRESSION: Distended gallbladder with cholelithiasis.
[2023-07-31] MEDS: SODIUM CHLORIDE 0.9% 10ML SYR (RAD ONLY) 10 ML IV (16:20)
[2023-07-31] MEDS: IOPAMIDOL-370 (76%);100ML BOTTLE 75 ML IV (16:20)
[2023-07-31 16:29] LABS: Lipase 34426 U/L (23-300)
--- NOTE | 2023-07-31 16:35 | PC.NURSE ---
Pt gone for u/s via wheelchair
[2023-07-31 16:38] LABS: Lymphocytes % 9 % (10-50); Monocytes % 2 % (2-9); Neutrophils % 89 % (42-76); Platelet Estimate Normal; RBC Morphology Normal; Total Cells Counted 100
--- NOTE | 2023-07-31 17:01 | PC.NURSE ---
ct rad states that pt was getting up for her ct scan when she assisted pt to the floor in a sitting position due to her weakness, no injuries noted at this time, HS and aware.
[2023-07-31] MEDS: ONDANSETRON 4MG/2ML VIAL 8 MG IV (17:12)
--- NOTE | 2023-07-31 17:17 | PC.NURSE ---
assisted pt to the restroom at this time. pt became nauseous and started vomiting. MD placed new medication orders.
--- NOTE | 2023-07-31 17:28 | PC.NURSE ---
[facility] Advised they would call back when they had someone available to speak
--- NOTE | 2023-07-31 17:40 | PC.NURSE ---
lab aware of blood culture order to collect
--- NOTE | 2023-07-31 17:58 | PC.NURSE ---
Spoke with Amarjit at [facility] transfer center about possible transfer. Waiting on callback at this time.
--- NOTE | 2023-07-31 18:00 | PC.NURSE ---
PA speaking with [facility] at this time
--- NOTE | 2023-07-31 18:08 | PC.NURSE ---
[facility] does not have GI coverage at this time. has a 2-3 week wait list Pt placed on wait list at [facility]
[2023-07-31] MEDS: PIPERCILLIN/TAZO 3.375 GM in 0.9 % SODIUM CHLORIDE 50 ML IV ×2 (18:09→22:42)
--- NOTE | 2023-07-31 18:20 | PC.NURSE ---
Addendum entered by Jemma Moran, EMT 07/31/23 18:21: available at this time Original Note: Called [facility] about possible transfer. Waiting general operations manager back at this time, but was advised there are no immediate beds avai
--- NOTE | 2023-07-31 18:25 | PC.NURSE ---
Called about possible transfer. Waiting trauma surgeon back at this time
--- NOTE | 2023-07-31 18:56 | PC.NURSE ---
Addendum entered by Jemma Moran, EMT 07/31/23 18:57: Dr. Biswas Original Note: Don speaking with [facility] at this time
--- NOTE | 2023-07-31 19:00 | PC.NURSE ---
Mario speaking with Dr. Zimmerman at
--- NOTE | 2023-07-31 19:08 | PC.NURSE ---
Dr. Sauer paged for Mid level
--- NOTE | 2023-07-31 19:15 | PC.NURSE ---
Patient resting in bed voices no concerns/needs at this time.
--- NOTE | 2023-07-31 19:22 | PC.NURSE ---
per mid level, patient accepted by [facility]
--- NOTE | 2023-07-31 20:17 | PC.NURSE ---
face sheet faxed to and confirmation received
--- NOTE | 2023-07-31 20:33 | PC.NURSE ---
Called for an update about a pt bed. Spoke to Valentina, she states they do not have a bed at this time assigned to the pt. She advised me that she will call me back as soon as she has an update. and RN aware. CR
[2023-07-31 21:53] LABS: Reflex Lactic Add Lactic Reflex
[2023-07-31 22:24] LABS: Lactic Acid Follow Up (RFLX 1) 1.9 mmol/L (0.7-2.1)
--- NOTE | 2023-07-31 22:52 | PC.NURSE ---
call from [facility] requesting update on patient and facesheet
[2023-07-31] MEDS: LACTATED RINGERS 1000ML 1,000 ML 100 ML IV (23:15)
--- NOTE | 2023-07-31 23:20 | PC.NURSE ---
called at 2230 to see about update on bed status per family request. still awaiting a clean bed
--- NOTE | 2023-07-31 23:48 | PC.NURSE ---
called for bed update; was told there is a room available for the patient but it has not been cleaned yet. I asked if there was any kind of time frame to know when it would be available and was told they only know it's clean when it says clean. I then asked if it would be this shift before 0700 and was told yes it would be.
[2023-08-01] VITALS: BP 117/59
--- NOTE | 2023-08-01 00:15 | PC.NURSE ---
patient moved to room 1 placed in hospital bed for comfort, recliner placed in room for son
--- NOTE | 2023-08-01 00:15 | PC.NURSE ---
Patient was incontinent, pad was changed and a new one was placed, also patient voided in the bedside commode
[2023-08-01 00:30] VITALS: BP 123/61; PULSE 74; O2SAT 96
--- NOTE | 2023-08-01 00:58 | PC.NURSE ---
checked on patient, all needs are met. call montano within reach.
[2023-08-01 01:07] VITALS: BP 124/60; PULSE 72; O2SAT 94
--- NOTE | 2023-08-01 01:14 | PC.NURSE ---
patient awaiting transfer to once a bed is ready, VS changed to Qh while patient is stable and sleeping per RN
[2023-08-01 02:00] VITALS: BP 131/59; PULSE 72; O2SAT 95
--- NOTE | 2023-08-01 02:11 | PC.NURSE ---
Sowmya from [facility] called and advised that they have a bed available for the pt to go to. Advised RN and . LANI
[2023-08-01 02:31] VITALS: BP 131/56; PULSE 66; RESP 18; TEMP 36.9
--- NOTE | 2023-08-01 02:31 | PC.NURSE ---
EMS notified of need for transport
--- NOTE | 2023-08-01 02:48 | PC.NURSE ---
patient assisted to [facility]
--- NOTE | 2023-08-08 14:20 | PC.NURSE ---
blood culture results discussed with , called [facility] where pt was transferred, pt was dc home on 08/05/2023. Called pt who states that she received antibiotic during her hospital stay, states that 5 days of antibiotics is ok, ntd at this time, discussed with pt if she starts to feel bad to fu with her pcp, pt states that she has a fu with her pcp on .
== END 2023-08-01 03:20 | disposition other institution (70) ==
PROVIDERS: Physician Assistant; Emergency Provider Emergency Medicine; PCP Family Medicine
DX: K85.10 Biliary acute pancreatitis without necrosis or infection (principal); K80.50 Calculus of bile duct without cholangitis or cholecystitis without obstruction; K80.20 Calculus of gallbladder without cholecystitis without obstruction; R11.2 Nausea with vomiting, unspecified; M54.59 Other low back pain; E11.9 Type 2 diabetes mellitus without complications; I10 Essential (primary) hypertension; E78.5 Hyperlipidemia, unspecified; Z79.4 Long term (current) use of insulin
CPT/HCPCS: 36415; 74177; 76705; 80053; 81001; 83605; 83690; 83735; 85007; 85025; 87040; 87636; 96361; 96365; 96375; 96376; 99285; J0131; J2405; J2543; Q9967

== ENCOUNTER 2023-12-26 08:54 | Outpatient (CLI) | payer MEDICARE, OTHER, SELFPAY ==
--- NOTE | 2023-12-26 08:57 | XR_ITS ---
FINAL REPORT TECHNIQUE: Bone densitometry calculations of the lumbar spine and left hip were obtained. CLINICAL HISTORY: OSTEOPENIA COMPARISON: 07/07/2021 FINDINGS: Using L1-4, the bone mineral density of the spine is 1.210 g/cm2, corresponding to T-score of 1.5. Using the right hip, the bone mineral density of the femoral neck is 0.672 g/cm2, corresponding to a T-score of -1.6. NOTE: T-score: Standard deviation compared with peak bone mass of young adult mean. *Following the recommendations of the International Society of Bone densitometry, classification of hip BMD is based on the lower of two T-scores; total hip or femoral neck. IMPRESSION: Diminished bone mineral density of the right hip consistent with osteopenia. Normal bone mineral density of the lumbar spine. Reviewed, Interpreted and Dictated by Melvin Thorne MD Transcribed by Marlyn Roman Authenticated and . [facility]
== END 2023-12-26 23:59 | disposition home or self-care (01) ==
LOC: RAD 08:54
PROVIDERS: PCP Family Medicine; Visit Provider Family Medicine
DX: M85.88 Other specified disorders of bone density and structure, other site (principal)
CPT/HCPCS: 77080

== ENCOUNTER 2024-03-11 10:21 | Emergency (ER) | payer MEDICARE, OTHER, SELFPAY ==
--- OUTSIDE RECORDS SUMMARY | 2024-03-11 10:35 | XMS_ITS ---
Author Organization [facility] Address [address] [facility] [address] [address] [place] [id number] Care Team Providers Care Vp Marketing Name Role Phone Andreia Peterson Primary Care Provider REASON FOR VISIT Test results Encounters Encounter Location Date Provider Diagnosis [facility] [address] [facility] [address] [address] [place] [id number] 01/01/2024 Andreia Peterson PLAN OF TREATMENT Next Appt Details Provider Name:Andreia Burgess, 06/20/2024 09:15:00 AM, [address] [facility] [address] [address], [address], [place], [phone],
--- OUTSIDE RECORDS SUMMARY | 2024-03-11 10:35 | XMS_ITS ---
Author Organization [facility] Address [address] [facility] [address] [facility] [address] [place] [phone] Care Team Providers Care Cylinder Inspector And Tester Name Role Phone Andreia Peterson Primary Care Provider REASON FOR VISIT Test results Encounters Encounter Location Date Provider Diagnosis [facility] [address] [facility] [address] [facility] [address] [facility] [address] [place] [id number] 12/20/2023 Andreia Peterson PLAN OF TREATMENT Next Appt Details Provider Name:Andreia Burgess, 06/20/2024 09:15:00 AM, [address] [facility] [address] [facility] [address] [facility], [address], [place], [phone],
--- OUTSIDE RECORDS SUMMARY | 2024-03-11 10:36 | XMS_ITS | Patient Health Record ---
[facility] Address [address] [place] [id number] Care Team Providers Care Brand Activation Manager Name Role Phone Andreia Peterson Primary Care Provider [phone] ALLERGIES No Known Allergies RESULTS Component Value Reference Range Notes Glycohemoglobin A1c (in hous e) Reviewed date:12/20/2023 07:55:47 PM Interpretation:7.1 Performing Lab: Notes/Report: 7.1 glycohemoglobin 7.1% 5 - 6.5 % P-Comprehensive Metabolic Pa nena (CMP) Reviewed date:12/20/2023 07:55:47 PM Interpretation:gluc 116, bun 25 Performing Lab: Notes/Report: Test performed by [facility] [address] [place] [address] , [address], [place] [address] Johnny Thurman MD, Artificial Inseminator CLIA: [id number] Sodium 141 135-145 mmol/L Potassium 5.0 3.5-5.3 mmol/L Chloride 106 97-108 mmol/L CO2 27 22-32 mmol/L Glucose 116 65-99 mg/dL BUN 25 8-23 mg/dL Creatinine 0.96 0.50-1.00 mg/dL Calcium 10.4 8.6-10.4 mg/dL eGFR by Creatinine 63 >59 mL/min/1.73m2 Protein 7.0 6.0-8.3 g/dL Albumin 4.4 3.5-5.3 g/dL Alkaline Phosphatase 118 35-121 IU/L ALT (SGPT) 20 <5-47 IU/L AST (SGOT) 19 <5-40 IU/L Bilirubin, Total 0.4 <0.2-1.2 mg/dL A/G Ratio 1.7 1.1-2.5 P-Lipid Panel Reviewed date:12/20/2023 07:55:47 PM Interpretation:Normal Performing Lab: Notes/Report: Test performed by [email or web address], [address] , [address], [place] [address] Johnny Thurman MD, Artificial Inseminator CLIA: [id number] Cholesterol 148 <200 mg/dL Triglycerides 149 <150 mg/dL HDL Cholesterol 57 >39 mg/dL Cholesterol / HDL Ratio 2.60 0.00-4.44 Ratio Non-HDL Cholesterol 91 <130 mg/dL LDL Cholesterol (Calculation) 61 <130 mg/dL LDL Cholesterol Levels* Less than 100 mg/dL Optimal 100 to 129 mg/dL Near Optimal/ Above Optimal 130 to 159 mg/dL Borderline High 160 to 189 mg/dL High 190 mg/dL and above Very High * Categories as recommended by the 2004 ATPIII guidelines LDL/HDL Ratio 1.1 <3.3 Ratio LDL Cholesterol Patient History Test Date: 06/20/2023 LDL Results: 66 Units: mg/dL % Change: - Test Date: 12/19/2023 LDL Results: 61 Units: mg/dL % Change: -7% P-Microalbumin/Creatinine, R andom Urine Sample Reviewed date:12/20/2023 07:55:47 PM Interpretation:Normal Performing Lab: Notes/Report: Test performed by [facility] [address] [place] [address] , [address], [place] [address] Johnny Thurman MD, Artificial Inseminator CLIA: [id number] Albumin/Creatinine Ratio, Urine 18 0-30 ug/mg Microalbumin, Urine, Random 1.7 Creatinine, Urine 93.8 Bone density Reviewed date:01/01/2024 08:20:29 PM Interpretation:osteopenia right hip Performing Lab: Notes/Report: osteopenia right hip Bone density osteopenia right hip Urinalysis - Inhouse Reviewed date:06/27/2023 02:46:38 PM Interpretation: Performing Lab: Notes/Report: Color/Clarity yellow/clear Leuk 1+ Nitrite neg Urobili 3.2 Protein neg pH 7.0 Blood neg Sp. Gr. 1.015 Ketone neg Bili neg Gluc neg bacteria WBC RBC Mammogram Reviewed date:07/03/2023 11:00:29 AM Interpretation:Negative, annual f/u Performing Lab: Notes/Report: Negative, annual f/u result Negative, annual f/u P-Microalbumin/Creatinine, R andom Urine Sample Reviewed date:07/06/2023 11:52:55 AM Interpretation:not performed Performing Lab: Notes/Report: not performed Albumin/Creatinine Ratio, Urine Creatinine, Urine Microalbumin, Urine, Random Test Cancelled P-Lipid Panel Reviewed date:06/22/2023 12:40:38 PM Interpretation: Performing Lab: Notes/Report: Test performed by [facility] [address] [place], [place] [address] [place] , [address], [place] [address] Johnny Thurman MD, Artificial Inseminator CLIA: [id number] Cholesterol 164 <200 mg/dL Triglycerides 192 <150 mg/dL HDL Cholesterol 60 >39 mg/dL Cholesterol / HDL Ratio 2.73 0.00-4.44 Ratio Non-HDL Cholesterol 104 <130 mg/dL LDL Cholesterol (Calculation) 66 <130 mg/dL LDL Cholesterol Levels* Less than 100 mg/dL Optimal 100 to 129 mg/dL Near Optimal/ Above Optimal 130 to 159 mg/dL Borderline High 160 to 189 mg/dL High 190 mg/dL and above Very High * Categories as recommended by the 2004 ATPIII guidelines LDL/HDL Ratio 1.1 <3.3 Ratio LDL Cholesterol Patient History Test Date: 06/20/2023 LDL Results: 66 Units: mg/dL % Change: - P-Comprehensive Metabolic Pa nena (CMP) Reviewed date:06/22/2023 12:40:38 PM Interpretation: Performing Lab: Notes/Report: Test performed by [email or web address] [address] [place] [address] , [address], [place] [address] Johnny Thurman MD, Artificial Inseminator CLIA: [id number] Sodium 140 135-145 mEq/L Potassium 3.9 3.5-5.3 mEq/L Chloride 103 97-108 mEq/L CO2 26 22-32 mEq/L Glucose 145 65-99 mg/dL BUN 30 8-23 mg/dL Creatinine 0.95 0.50-1.00 mg/dL Calcium 10.2 8.6-10.4 mg/dL eGFR by Creatinine 64 >59 mL/min/1.73m2 Protein 7.2 6.0-8.3 g/dL Albumin 4.4 3.5-5.3 g/dL Alkaline Phosphatase 125 35-121 IU/L ALT (SGPT) 20 <5-47 IU/L AST (SGOT) 17 <5-40 IU/L Bilirubin, Total 0.4 <0.2-1.2 mg/dL A/G Ratio 1.6 1.1-2.5 mg/dL Glycohemoglobin A1c (in hous e) Reviewed date:06/22/2023 12:40:38 PM Interpretation:7.6% Performing Lab: Notes/Report: 7.6% glycohemoglobin 7.6% 5 - 6.5 % REASON FOR REFERRAL No Information MEDICATIONS Medication SIG (Take, Route, Frequency, Duration) Notes Start Date End Date Status Multiple Vitamin - 1 cap(s) orally once a day Active Timolol Maleate 0.5 % 1 gtt in each affe cted eye 2 times a day Active BD Pen Needle Short U/F 31 GUAGE X 5/16 INCH 1 PEN NEEDLE ONCE A DAY 10/26/2018 Active Famotidine 20 MG 1 tab(s) orally 2 ti mes a day Active Tresiba FlexTouch 200 UNIT/ML INJECT 28 UNITS SUBCUTANEOUSLY ONCE DAILY for 64 Active Atorvastatin Calcium 40 MG TAKE 1 TABLET BY MOUTH EVERY DAY for 90 Active Lisinopril 20 MG TAKE 1 TABLET BY LINDA TH TWICE A DAY for 90 Active ONETOUCH TEST STRIP 1 STRIP BID OR DIRECTED Active ONE TOUCH GLUCOMETER DIRECTED USE DIRECTED Active Clopidogrel Bisulfate 75 MG TAKE 1 TABLET BY MOUTH EVERY DAY for 90 Active OneTouch Delica Lancets 33G DIRECTED TEST BID Active Plavix 75 MG 1 tab(s) orally once a day Active PEN NEEDLE S/C 31GX5/16 DIRECTED QD Active Lisinopril 20 MG 1 tab(s) orally bid Active BD Pen Needle Short U/F 31G X 8 MM USE EVERY DAY for 90 Active IMMUNIZATIONS Vaccine Route Administration Date Status Comme nts COVID 19 Grace Unknown 07/08/2020 Administered COVID 19 Grace Unknown 03/17/2021 Administered Fluzone High Dose (65yr and older) IM Intramuscular 03/03/2017 Administered Fluzone High Dose (65yr and older) IM Intramuscular 03/19/2019 Administered Fluzone High Dose (65yr and older) IM Intramuscular 02/12/2020 Administered Fluzone High Dose (65yr and older) IM Intramuscular 02/19/2021 Administered Fluzone High Dose (65yr and older) IM Intramuscular 03/16/2022 Administered PNEUMOVAX 23 VACCINE IM Intramuscular 06/20/2023 Administe red Prevnar (PCV13) IM Intramuscular 12/20/2019 Administered SOCIAL HISTORY Sex Assigned At : Social History Observation Description Sex Assigned At Unknown PROBLEMS Problem Type ICD Code Onset Dates Problem Status W/U Status Risk SNOMED Code Notes Problem Essential hypertension (I10) Active confirmed 88139129 Problem Osteopenia (M85.80) Active confirmed Os teopenia (649739203) Problem BMI 33.0-33.9,adult (Z68.33) Active confirmed Obese class I (546372630576140) Problem 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) Active confirmed Hemiplegia of dominant side as late effect of cerebrovascular disease (628262024) Problem termite helper current use of insulin (Z79.4) Active confirmed 560683208 Problem Gastroesophageal reflux disease without esophagitis (K21.9) Active confirmed Gastroesophagea l reflux disease without esophagitis (135911950) Problem Cataracts, bilateral (H26.9) Active confirmed Cataract (447700048) Problem Dyslipidemia (E78.5) Active confirmed 783855494 Problem Type 2 diabetes mellitus without complication, without long-term current use of insulin (E11.9) Active confirmed Type 2 diabe rigo mellitus without complication (284555072) Problem Type 2 diabetes mellitus with mild nonproliferative diabetic retinopathy with macular edema, 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) Active confirmed 03451482 Problem S/P cholecystectomy (Z90.49) Active confirmed 659905457 Problem History of cerebrovascular accident (CVA) with residual deficit (I69.30) Active confirmed 731769613 Problem Both eyes affected by mild nonproliferative diabetic retinopathy with macular edema, associated with type 2 diabetes mellitus (E11.3213) Active confirmed VITAL SIGNS Heart Rate 70 /min 12/19/2023 Blood pressure diastolic 86 mm Hg 12/19/2023 Height 57.50 in 12/19/2023 Blood pressure systolic 128 mm Hg 12/19/2023 Weight 156.6 lbs 12/19/2023 BMI 33.30 kg/m2 12/19/2023 Encounters Encounter Location Date Provider [facility] [address] [place] [id number] 06/20/2023 R Andrade Peterson Adult general medica l examination Z00.00 ; Essential hypertension I10 ; Hemiplegia and hemiparesis following cerebral infarction affecting right dominant side I69.351 ; Dyslipidemia E78.5 ; Type 2 diabetes mellitus with mild nonproliferative diabetic retinopathy with macular edema, bilateral E11.3213 ; Both eyes affected by mild nonproliferative diabetic retinopathy with macular edema, associated with type 2 diabetes mellitus E11.3213 ; History of cerebrovascular accident (CVA) with residual deficit I69.30 ; Osteopenia M85.80 ; termite helper current use of insulin Z79.4 ; Gastroesophageal reflux disease without esophagitis K21.9 and BMI 33.0-33.9,adult Z68.33 [facility] [address] [place] [id number] 12/19/2023 R Andrade Peterson Essential hypertensi on I10 ; Hemiplegia and hemiparesis following cerebral infarction affecting right dominant side I69.351 ; Dyslipidemia E78.5 ; Type 2 diabetes mellitus with mild nonproliferative diabetic retinopathy with macular edema, bilateral E11.3213 ; Both eyes affected by mild nonproliferative diabetic retinopathy with macular edema, associated with type 2 diabetes mellitus E11.3213 ; History of cerebrovascular accident (CVA) with residual deficit I69.30 ; Osteopenia M85.80 ; termite helper current use of insulin Z79.4 and Gastroesophageal reflux disease without esophagitis K21.9 [facility] [address] [place] [id number] 08/10/2023 R Andrade Peterson Acute cholecystitis K81.0 ; Transaminitis R74.01 ; Gallstone pancreatitis K85.10 and S/P cholecystectomy Z90.49 [facility] [address] [place] [id number] 06/26/2023 R Andrade Peterson Acute UTI N39.0 [facility] [address] [place], [place] [id number] 06/22/2023 R Andrade Nicholas [facility] [address] [place], [place] [id number] 06/26/2023 R Andrade Nicholas [facility] [address] [place], [place] [id number] 08/29/2023 R Andrade Nicholas [facility] [address] [place], [place] [id number] 11/27/2023 R Andrade Nicholas [facility] [address] [place], [place] [id number] 12/20/2023 R Andrade Nicholas [facility] [address] [place], [place] [id number] 01/01/2024 R Andrade Nicholas ASSESSMENTS Encounter Date Diagnosis Assessment Notes Treatment Notes Treatment Clinical Notes 06/26/2023 Acute UTI (ICD-10 - N39.0) 08/10/2023 Acute cholecystitis (ICD-10 - K81.0) 08/10/2023 Transaminitis (ICD-1 0 - R74.01) She will remain off the atorvastatin for additional 3 to 4 weeks and then resume. 12/19/2023 Essential hypertensi on (ICD-10 - I10) 12/19/2023 Hemiplegia and hemiparesis following cerebral infarction affecting right dominant side (ICD-10 - I69.351) 06/20/2023 Essential hypertensi on (ICD-10 - I10) 06/20/2023 Adult general medica l examination (ICD-10 - Z00.00) Patient instructed to return to office Annually for Annual Wellness Visits to include annual screenings of Pain assessment, Functional Ability assessment, Cognitive Ability assessment, Fall Risk assessment, Depression screening and Bladder control screening. 06/20/2023 Hemiplegia and hemiparesis following cerebral infarction affecting right dominant side (ICD-10 - I69.351) 08/10/2023 Gallstone pancreatit is (ICD-10 - K85.10) 12/19/2023 Dyslipidemia (ICD-10 - E78.5) 12/19/2023 Type 2 diabetes mellitus with mild nonproliferative diabetic retinopathy with macular edema, bilateral (ICD-10 - E11.3213) 08/10/2023 S/P cholecystectomy (ICD-10 - Z90.49) Follow-up with surgeon as scheduled. 06/20/2023 Dyslipidemia (ICD-10 - E78.5) 06/20/2023 Type 2 diabetes mellitus with mild nonproliferative diabetic retinopathy with macular edema, bilateral (ICD-10 - E11.3213) 12/19/2023 Both eyes affected b y mild nonproliferative diabetic retinopathy with macular edema, associated with type 2 diabetes mellitus (ICD-10 - E11.3213) 12/19/2023 History of cerebrovascular accident (CVA) with residual deficit (ICD-10 - I69.30) 06/20/2023 Both eyes affected b y mild nonproliferative diabetic retinopathy with macular edema, associated with type 2 diabetes mellitus (ICD-10 - E11.3213) 06/20/2023 History of cerebrovascular accident (CVA) with residual deficit (ICD-10 - I69.30) 12/19/2023 Osteopenia (ICD-10 - M85.80) 12/19/2023 termite helper current us e of insulin (ICD-10 - Z79.4) 06/20/2023 Osteopenia (ICD-10 - M85.80) 06/20/2023 termite helper current us e of insulin (ICD-10 - Z79.4) 12/19/2023 Gastroesophageal reflux disease without esophagitis (ICD-10 - K21.9) 06/20/2023 Gastroesophageal reflux disease without esophagitis (ICD-10 - K21.9) 06/20/2023 BMI 33.0-33.9,adult (ICD-10 - Z68.33) PLAN OF TREATMENT Pending Test Test Name Order Date Mammogram 06/28/2022 Next Appt Details Provider Name:Andreia Burgess, 06/20/2024 09:15:00 AM, [address], [address], [place], [phone], Insurance Providers Payer Name Payer Address Payer Phone Subscriber Number Group Number Insured Name Patient Relationship to Insured Coverage Start Date Coverage End Date MEDIC[place] [id number] [place] [id number] LINDA AYALA Self - patient is the insured [employer] [address] [address] [place] [address] [phone] [id number] LINDA AYALA Self - patient is the insured MEDICATIONS ADMINISTERED Medication Instructions Date of Administration Dosage Notes Depo- Medrol 40 mg/ml 12/03/2013 1.5 mL Phenergan 12.5 mgs. IM 03/09/2016 12.5 mg MEDICAL (GENERAL) HISTORY Medical History History ICD Code hypertension diabetes mellitus gout Stroke - 2016 - affecting vision right occipital lobe infarct with left h emiparesis Cerebrovascular accident (CVA), unspecif ied mechanism Negative COLOGUARD - 08/2017; 2021 Mild bilateral nonproliferative diabetic retinopathy - Dr. Rojas Cataracts Surgical History Surgery Date(Month/Year) Right cataract left cataract - Dr. Brittany Ngo[place] 06/2020 Laparoscopic cholecystectomy/ [facility] 07/2023 Hospitalization History Reason Date(Month/Year) [facility] ER-shoulder and left arm pain 11/29/08 [facility] ER-High BP 01/29/13 [facility] ER-trouble talking, admitted to 1 06/16 [facility] with acute thr ombotic CVA, right hemaparesis, dysarthria, aphasia, frequent falls, HTN, Type 2 DM 04/21/16-05/10/16 [facility] ER-elevated BP 07/19/18
--- OUTSIDE RECORDS SUMMARY | 2024-03-11 10:36 | XMS_ITS ---
[facility] Organization [facility] Address [address] [place] [phone] Care Team Providers Care Real Estate Office Manager Name Role Phone Andreia Peterson Primary Care Provider [phone] ALLERGIES No Known Allergies RESULTS Component Value Reference Range Notes Glycohemoglobin A1c (in hous e) Reviewed date:12/20/2023 07:55:47 PM Interpretation:7.1 Performing Lab: Notes/Report: 7.1 glycohemoglobin 7.1% 5 - 6.5 % P-Comprehensive Metabolic Pa nena (CMP) Reviewed date:12/20/2023 07:55:47 PM Interpretation:gluc 116, bun 25 Performing Lab: Notes/Report: Test performed by [facility] [address] [place] [address] , [address], [place] [address] Johnny Thurman MD, Clinical Dietician CLIA: [id number] Sodium 141 135-145 mmol/L Potassium 5.0 3.5-5.3 [...] Interpretation:Normal Performing Lab: Notes/Report: Test performed by [facility], [address] , [address], [place] [address] Johnny Thurman MD, Clinical Dietician CLIA: [id number] Cholesterol 148 <200 mg/dL Triglycerides 149 <150 [...] Interpretation:Normal Performing Lab: Notes/Report: Test performed by [facility] [address] [place] [address] , [address], [place] [address] Johnny Thurman MD, Clinical Dietician CLIA: [id number] Albumin/Creatinine Ratio, Urine 18 0-30 ug/mg Microalbumin, Urine, Random 1.7 Creatinine, Urine 93.8 Bone density Reviewed date:01/01/2024 08:20:29 PM Interpretation:osteopenia right hip Performing Lab: Notes/Report: osteopenia right hip Bone density osteopenia right hip REASON FOR VISIT 6 mos checkup, Needs labs & bone density screening MEDICATIONS Medication SIG (Take, Route, Frequency, Duration) Notes Start Date End Date Status Lisinopril 20 MG TAKE 1 TABLET BY LINDA TWICE A DAY for 90 Active ONETOUCH TEST STRIP 1 STRIP BID OR DIRECTED Active Tresiba FlexTouch 200 UNIT/ML INJECT 28 UNITS SUB-Q EVERY DAY Subcutaneous once daily for 90 days Active Clopidogrel Bisulfate 75 MG TAKE 1 TABLET BY MOUTH EVERY DAY for 90 Active BD Pen Needle Short U/F 31G X 8 MM USE EVERY DAY for 90 Active Plavix 75 MG 1 tab(s) orally once a day Active Atorvastatin Calcium 40 MG 1 tab(s) orally once a day Active PEN NEEDLE S/C 31GX5/16 DIRECTED QD Active Lisinopril 20 MG 1 tab(s) orally bid Active Atorvastatin Calcium 40 MG TAKE 1 TABLET BY MOUTH EVERY DAY for 90 Active Tresiba FlexTouch 200 UNIT/ML INJECT 20 UNITS SUB-Q EVERY DAY Active Multiple Vitamin - 1 cap(s) orally once a day Active Timolol Maleate 0.5 % 1 gtt in each affe cted eye 2 times a day Active BD Pen Needle Short U/F 31 GUAGE X 5/16 INCH 1 PEN NEEDLE ONCE A DAY 10/26/2018 Active Famotidine 20 MG 1 tab(s) orally 2 ti mes a day Active ONE TOUCH GLUCOMETER DIRECTED USE DIRECTED Active OneTouch Delica Lancets 33G DIRECTED TEST BID Active VITAL SIGNS Weight 156.6 lbs 12/19/2023 Blood pressure systolic 128 mm Hg 12/19/19 24 Blood pressure diastolic 86 mm Hg 024 Heart Rate 70 /min 12/19/2023 Height 57.50 in 12/19/2023 BMI 33.30 kg/m2 12/19/2023 Encounters Encounter Location Date Provider Diagnosis [facility] [address] [facility] [address] [place], [place] [phone] 12/19/2023 Andreia Peterson Essential hypertensi on I10 ; Hemiplegia [...] residual deficit I69.30 ; Osteopenia M85.80 ; [facility] current use of insulin Z79.4 and Gastroesophageal reflux disease without esophagitis K21.9 ASSESSMENTS Encounter Date Diagnosis Assessment Notes Treatment Notes Treatment Clinical Notes 12/19/2023 Essential hypertensi on (ICD-10 - I10) 12/19/2023 Hemiplegia and hemiparesis following cerebral infarction affecting right dominant side (ICD-10 - I69.351) 12/19/2023 Dyslipidemia (ICD-10 - E78.5) 12/19/2023 Type 2 diabetes mellitus with mild nonproliferative diabetic retinopathy with macular edema, bilateral (ICD-10 - E11.3213) 12/19/2023 Both eyes affected b y mild nonproliferative diabetic retinopathy with macular edema, associated with type 2 diabetes mellitus (ICD-10 - E11.3213) 12/19/2023 History of cerebrovascular accident (CVA) with residual deficit (ICD-10 - I69.30) 12/19/2023 Osteopenia (ICD-10 - M85.80) 12/19/2023 [facility] current us e of insulin (ICD-10 - Z79.4) 12/19/2023 Gastroesophageal ref lux disease without esophagitis (ICD-10 - K21.9) PLAN OF TREATMENT Medication Medication Name Sig Start Date Stop Date Notes Plavix 75 MG 1 tab(s) orally once a day Atorvastatin Calcium 40 MG 1 tab(s) orally once a day Lisinopril 20 MG 1 tab(s) orally bid Tresiba FlexTouch 200 UNIT/ML INJECT 20 UNITS SUB-Q EVERY DAY Next Appt Details Follow Up: 6 Months, Reason: Provider Name:Andreia Andrade Del Valle tiffany, 06/20/2024 09:15:00 AM, [address], [address], [place], [place], [phone], Progress Notes * Examination Category Sub-Category Detail Notes General Examination Heart: RSR Lungs: clear to auscultatio n Abdomen: bowel sounds present , soft and nontender Extremities: AFO on right ankle. No leg edema General Appearance: alert, NAD, affect g ood. Neurologic Exam: alert and oriented. Speech is clear. Paresis of RUE unchanged Neck: supple, no lymphaden opathy, no thyromegaly History and Physical Notes * HPI (History of Present Illness) Category Sub-Category Detail Notes [facility]. Pt is fasting today. Pt sts that she has no new concerns or complaints at this time
[2024-03-11 10:48] VITALS: BP 199/97; PULSE 91; RESP 18; TEMP 36.7; O2SAT 97; BMI 31.3
--- NOTE | 2024-03-11 10:53 | CT_ITS ---
FINAL REPORT TECHNIQUE: After the administration of intravenous contrast, axial images were obtained through the abdomen and pelvis by computed tomography. This study was performed with technique to keep radiation doses as low as reasonably achievable, (ALARA). Individualized dose reduction techniques using automated exposure control or adjustment of the MA and/or KV according to the patient's size were employed. CLINICAL HISTORY: RLQ abdominal pain, constipation COMPARISON: 07/31/2023 FINDINGS: Abdomen: There is mild bibasilar atelectasis or scarring. The liver is normal in size and attenuation. There has been interval cholecystectomy with improved findings of pancreatitis. Pancreas is without focal abnormality. The spleen is unremarkable. The adrenals are normal. The kidneys enhance appropriately. The aorta is normal in caliber. There is no free fluid or adenopathy. Moderate vascular calcifications are noted. Pelvis: The partially visualized appendix is normal. The urinary bladder is unremarkable. There is no free fluid or adenopathy. IMPRESSION: Interval cystectomy with improvement of previously seen pancreatitis. Reviewed, Interpreted and Dictated by Félix Garcia III, MD Transcribed by Julissa Diaz Authenticated and [facility]
--- NOTE | 2024-03-11 10:55 | ED_ITS ---
Discharge Plan Disposition Patient Disposition: Home, Self-Care Chief Complaint: Abdominal Pain Prescriptions Prescriptions: No Action clopidogrel 75 mg tablet 75 mg PO DAILY 90 Days Patient Comments: atorvastatin 40 mg tablet 40 mg PO HS 90 Days Patient Comments: lisinopril 20 mg tablet 20 mg PO BID timolol maleate 0.5 % drops OPHTHALMIC (DME) pen needle, diabetic 31 gauge x 5/16 needle See Rx Instructions .ROUTE .MEDSUPPLY Qty: 1,200 Rx Instructions: As directed insulin degludec 200 unit/mL (3 mL) insulin pen 26 unit SQ ONCE cholecalciferol (vitamin D3) 25 mcg (1,000 unit) capsule 25 mcg PO DAILY Patient Comments: States she is taking 1,200 units daily dorzolamide-timolol 22.3-6.8 mg/mL drops 1 drp OPHTHALMIC Patient Comments: INSTILL 1 DROP INTO BOTH EYES 2 TIMES A DAY Referrals Follow up/Referrals: Heber Peterson MD [Primary Care Provider] - See instructions Mathew Wilder II, MD [Staff Physician] - See instructions Activity Restrictions/Add. Instructions Additional Instructions/Restrictions: At this time it was felt you are safe to be discharged home. If new or worsening symptoms please do not hesitate to return the emergency department. Please take your bowel cleanout as discussed and if your symptoms do not improve please call and schedule appointment with Dr. Wilder as soon as you are able. Clinical Impressions Clinical Impression: Abdominal pain, Constipation Instructions Patient Instructions: DI for Acute Abdominal Pain Print Language Print Language: Bel[place]ian Discharge ED Provider: Mark Gao General Adult HPI General Chief complaint: Abdominal Pain Stated complaint: R side pain constipated Time Seen by Provider: 03/11/24 10:32 History of Present Illness HPI narrative: Patient is a 74-year-old female past medical history of CVA without significant residual, diabetes, previous cholecystectomy who presents emergency department for evaluation of intermittent abdominal pain. Onset was acute, over the last 4 days, she has had some constipation over the last week however is still stooling although the bowel movements are like small hard khanh. No dysuria. No vomiting. No chest pain. No other acute complaints at this time. Related Data Home Medications ?Medication ?Instructions ?Recorded ?Confirmed atorvastatin 40 mg tablet 40 mg PO HS Cholesterol 90 days 06/27/17 12/18/23 clopidogrel 75 mg tablet 75 mg PO DAILY Blood thinner 90 06/27/17 12/18/23 days lisinopril 20 mg tablet 20 mg PO BID htn 10/11/18 12/18/23 pen needle, diabetic 31 gauge x #1,200 ea 06/26/19 12/18/23 5/16 timolol maleate 0.5 % eye drops ophthalmic (eye) 06/26/19 12/18/23 cholecalciferol (vitamin D3) 25 25 mcg PO DAILY 01/08/20 12/18/23 mcg (1,000 unit) capsule dorzolamide 22.3 mg-timolol 6.8 1 drp ophthalmic (eye) 08/19/21 12/18/23 mg/mL eye drops insulin degludec 200 unit/mL (3 26 unit SQ ONCE 08/19/21 12/18/23 mL) subcutaneous pen Allergies Allergy/AdvReac Type Severity Reaction Status Date / Time No Known Allergies Allergy Verified 12/18/23 08:08 [facility] Disclaimer: The information contained in this section may have been updated after the patient was seen, as this information can be updated by other users. Medical History HLD (hyperlipidemia) T2DM (type 2 diabetes mellitus) CVA (cerebral vascular accident) Hypertension Surgical History H/O tubal ligation Family History Other Diabetes Hyperlipidemia Hypertension Social History Smoking Status: Never smoker alcohol intake: never substance use type: denies use current occupational status: retired Travel in the last 8 weeks: None Other Medical History Have you received the Flu Vaccine for this season: Yes Have you received the Pneumonia Vaccine: Yes ROS Obtained: Yes Systems reviewed as appropriate & no additional complaints except as documented Physical Exam General General appearance: alert and in no apparent distress Head Head exam: atraumatic and normocephalic Eye Eye exam: Present PERRL ENT ENT exam: Present mucous membranes moist Neck Neck exam: Present normal inspection Chest Chest inspection: Present normal inspection and symmetric chest wall rise Respiratory Respiratory exam: Absent respiratory distress Cardiovascular Cardiovascular exam: Present regular rate and normal rhythm Abdominal Exam Abdominal exam: Present soft; Absent tenderness, guarding or rebound Extremities Exam Extremities exam: Present normal inspection Neurological Exam Neurological exam: Present alert and oriented X3 Psychiatric Psychiatric exam: Present normal affect Skin Skin exam: Present warm and dry Medical Decision Making Medical Records Screening: Per USPSTF and CDC recommendations, given the prevalence of disease in our region, it is our hospital?s policy to screen for HIV and viral Hepatitis for all patients aged 18 and over and those with ongoing risk factors. Victor Manuel Inquiry Pt receiving controlled substance: No Vital Signs: 03/11/24 10:48 03/11/24 12:09 03/11/24 12:30 Temperature 98.1 F Temperature Source Oral Pulse Rate 84 85 Pulse Rate [Right Brachial] 91 H Respiratory Rate 18 Blood Pressure 171/79 H 164/64 H Blood Pressure [Right Arm] 199/97 H Blood Pressure Mean [Right Arm] 131 02 Sat by Pulse Oximetry 97 97 97 Oxygen Delivery Method Room Air Room Air Room Air 03/11/24 14:23 Temperature Temperature Source Pulse Rate 97 H Pulse Rate [Right Brachial] Respiratory Rate Blood Pressure 180/83 H Blood Pressure [Right Arm] Blood Pressure Mean [Right Arm] 02 Sat by Pulse Oximetry 96 Oxygen Delivery Method Lab Data Lab Results 03/11/24 11:43: WBC 8.3, RBC 4.24, Hgb 13.9, Hct 39.9, MCV 93.9, MCH 32.8 H, MCHC 34.9, RDW 13.4, Plt Count 224, MPV 8.7, Neut % (Auto) 66.0, Lymph % (Auto) 25.2, [place] % (Auto) 6.3, Eos % (Auto) 1.8, Baso % (Auto) 0.6, Neut # (Auto) 5.5, Lymph # (Auto) 2.1, [place] # (Auto) 0.5, Eos # (Auto) 0.2, Baso # (Auto) 0.1, Sodium 143, Potassium 4.1, Chloride 109 H, Carbon Dioxide 25, Anion Gap 13.1, B UN 22 H, Creatinine 1.10 H, Estimated Creat Clear 49, Estimated GFR 49 L, Est GFR ( Amer) 59, Glucose 136 H, Calcium 10.0, Total Bilirubin 0.5, AST 29, ALT 25, Alkaline Phosphatase 106, Total Protein 7.1, Albumin 4.2, Globulin 2.9, Albumin/Globulin Ratio 1.4, Lipase 150, Urine Color Yellow, Urine Appearance Clear, Urine pH 6.0, Ur Specific [place] 1.020, Urine Protein Negative, Urine Glucose (UA) Negative, Urine Ketones Negative, Urine Blood Negative, Urine Nitrate Negative, Urine Bilirubin Negative, Urine Urobilinogen 0.2, Ur Leukocyte Esterase Negative, Urine RBC None, Urine WBC Occasional, Ur Squamous Epith Cells 5-10, Urine Bacteria Trace, HIV 1&2 Antibody Rapid Nonreactive 03/11/24 11:43 03/11/24 11:43 Orders (Tests/Meds): ED MEDICATIONS Discontinued Medications Generic Name Dose Route Start Last Admin Trade Name Freq PRN Reason Stop Dose Admin Acetaminophen 1,000 mg 03/11/24 10:53 03/11/24 11:28 Acetaminophen 1,000mg/100ml Vial IV 03/11/24 10:54 1,000 mg ONCE ONE Administration Iopamidol 75 ml 03/11/24 12:36 03/11/24 12:37 Iopamidol-370 (76%);100ml Bottle IV 03/11/24 12:37 75 ml ONCE ONE Administration Ketorolac Tromethamine 30 mg 03/11/24 10:55 03/11/24 11:28 Ketorolac 30mg/Ml Vial IV 03/11/24 10:56 30 mg ONCE ONE Administration Sodium Chloride 10 ml 03/11/24 12:36 03/11/24 12:36 Sodium Chloride 0.9% 10ml Syr (Rad Only) IV 03/11/24 12:37 10 ml ONCE ONE Administration ORDERS Category Date Time Status CT abdomen pelvis w con Stat Cat Scan 03/11/24 10:53 Completed CBC w/Auto Diff [Complete Blood Count Auto Diff] Stat Lab 03/11/24 11:43 Completed CMP [Comprehensive Metabolic Panel] Stat Lab 03/11/24 11:43 Completed HIV (1&2) Antibody Rapid Stat Lab 03/11/24 11:43 Completed Hep C Ab with Reflex to RNA Stat Lab 03/11/24 11:43 Received Lipase Stat Lab 03/11/24 11:43 Completed UA [Urinalysis and Microscopic] Stat Lab 03/11/24 11:43 Completed Medical Decision Narrative: In summary patient is 74-year-old female past medical history described above who presents emergency department for intermittent right lower quadrant abdominal pain and constipation. Patient is hemodynamically stable nontoxic- appearing upon arrival, afebrile. Differential diagnosis includes colonic mass, appendicitis, constipation, urinary tract infection, among others. Workup will be conducted with hematologic labs, urinalysis, CT abdomen pelvis IV contrast. Initial inventions include Tylenol, Toradol. IV crystalloid resuscitation was considered however patient appears euvolemic will be deferred. Workup reviewed by me, hematologic labs are nonactionable, no significant leukocytosis, no BRITT or critical electrolyte abnormality. Urinalysis interpreted by me and not consistent with infection. CT abdomen pelvis shows no acute pathology. Upon repeat evaluation patient was well-appearing resting at bedside. Prolonged discussion as to what this could be was had at bedside and all questions were answered. Patient will be given bowel cleanout empirically see if it improves her symptoms and if not she will contact Dr. Wilder for continued evaluation. Patient was given return precautions verbalized understanding. Critical Care Critical Care Time Critical Care Time: No
[2024-03-11] MEDS: ACETAMINOPHEN 1,000MG/100ML VIAL 1000 MG IV (11:28)
[2024-03-11] MEDS: KETOROLAC 30MG/ML VIAL 30 MG IV (11:28)
[2024-03-11 11:46] LABS: Microscopic, Urine URINE MICROSCOPIC (MICROSCOPIC)
[2024-03-11 11:50] LABS: Basophils # 0.1 K/mm3 (0-0.2); Basophils % 0.6 % (0.1-2.0); Eosinophils # 0.2 K/mm3 (0.0-0.4); Eosinophils % 1.8 % (0.1-12.0); Hematocrit 39.9 % (37.0-47.0); Hemoglobin 13.9 g/dL (12.2-16.2); Lymphocytes # 2.1 K/mm3 (0.7-4.5); Lymphocytes % 25.2 % (10-50); Mean Corpuscular HGB Conc 34.9 g/dL (31.8-35.4); Mean Corpuscular Hemoglobin 32.8 pg (27.0-31.2); Mean Corpuscular Volume 93.9 fl (81-99); Mean Platelet Volume 8.7 fl (7.4-10.4); Monocytes # 0.5 K/mm3 (0.1-1.0); Monocytes % 6.3 % (1.7-9.3); Neutrophils # 5.5 K/mm3 (1.8-7.8); Platelet Count 224 K/mm3 (142-424); Red Blood Count 4.24 M/mm3 (4.20-5.40); Red Cell Distribution Width 13.4 % (11.5-17.5); White Blood Count 8.3 K/mm3 (4.8-10.8)
[2024-03-11 11:56] LABS: Appearance,Urine CLEAR (Clear); Bilirubin,Urine Negative (Negative); Blood, Urine Negative (Negative); Color,Urine YELLOW (Yellow); Glucose,Urine (UA) Negative (Negative); Ketones,Urine Negative (Negative); Leukocyte Esterase,Urine Negative (Negative); Nitrate,Urine Negative (Negative); Protein,Urine Negative (Negative); Urobilinogen,Urine 0.2 EU/dl (0.2)
[2024-03-11 11:59] LABS: Alanine Aminotransferase 25 U/L (12-78); Albumin Level 4.2 g/dl (3.5-5.0); Albumin/Globulin Ratio 1.4 (1.1-1.8); Alkaline Phosphatase 106 U/L (38-126); Anion Gap 13.1 mEq/L (5-15); Aspartate Amino Transferase 29 U/L (14-36); Bilirubin,Total 0.5 mg/dl (0.2-1.3); Blood Urea Nitrogen 22 mg/dl (7-17); Carbon Dioxide 25 mmol/L (22.0-30.0); Chloride 109 mmol/L (98-107); Creatinine Clearance Estimated 49 mL/min (50-200); Estimated Glomerular Filt Rate 49 ml/min (>60); GFR (African American) 59 ML/MIN (>60); Globulin 2.9 g/dL (1.3-3.2); Glucose 136 mg/dl (74-100); Lipase 150 U/L (23-300); Potassium 4.1 mmoL/L (3.5-5.1); Sodium 143 mmol/L (136-145); Total Protein,Serum 7.1 g/dl (6.3-8.2)
[2024-03-11 12:09] VITALS: BP 171/79; PULSE 84; O2SAT 97
[2024-03-11 12:17] LABS: Bacteria,Urine Trace /lpf; WBC,Urine Occasional #/hpf (0-3)
[2024-03-11 12:30] VITALS: BP 164/64; PULSE 85; O2SAT 97
[2024-03-11] MEDS: SODIUM CHLORIDE 0.9% 10ML SYR (RAD ONLY) 10 ML IV (12:36)
[2024-03-11] MEDS: IOPAMIDOL-370 (76%);100ML BOTTLE 75 ML IV (12:37)
[2024-03-11 14:23] VITALS: BP 180/83; PULSE 97; O2SAT 96
[2024-03-11 14:25] VITALS: BP 198/74; O2SAT 98
--- NOTE | 2024-03-11 14:26 | PC.NURSE ---
updated pt and family about poc
[2024-03-11 14:27] LABS: HIV (1&2) Antibody Rapid NONREACTIVE (NONREACTIVE)
[2024-03-11 14:59] VITALS: BP 181/84; PULSE 89; RESP 18; TEMP 36.6; O2SAT 98
[2024-03-12 09:22] LABS: HCV Ab Non Reactive (Non Reactive)
== END 2024-03-11 15:00 | disposition home or self-care (01) ==
PROVIDERS: Emergency Provider Emergency Medicine; PCP Family Medicine
DX: K59.00 Constipation, unspecified (principal); R10.31 Right lower quadrant pain
CPT/HCPCS: 74177; 80053; 81001; 83690; 85025; 86803; 87389; 96374; 96375; 99285; J0131; J1885; Q9967

== ENCOUNTER 2024-07-15 09:38 | Outpatient (CLI) | payer MEDICARE, OTHER, SELFPAY ==
--- NOTE | 2024-07-15 10:09 | MM_ITS ---
PROCEDURE INFORMATION: Exam: MG Bilateral Screening 3D Mammography Exam date and time: 07/15/2024 10:10 AM Age: 74 years old Clinical indication: Screening examination TECHNIQUE: Imaging protocol: Bilateral Screening tomosynthesis and 2D mammography including computer-aided detection (CAD) when performed. COMPARISON: 1. MG MM DIG SCREENING MAMM BI W/CAD 06/28/2023 10:07 AM 2. MG MM DIG SCREENING MAMM BI W/CAD 07/07/2021 9:19 AM FINDINGS: MAMMOGRAPHY: Breast composition: There are scattered areas of fibroglandular density. Mass: None. Architectural distortion: None. Calcifications: No suspicious calcifications. Asymmetric density: None. Skin thickening: None. Axillary adenopathy: None. IMPRESSION: No mammographic evidence of malignancy. Annual screening is recommended unless otherwise clinically indicated. ASSESSMENT: BI-RADS Category 1: Negative.
== END 2024-07-15 23:59 | disposition home or self-care (01) ==
LOC: RAD 09:39
PROVIDERS: PCP Family Medicine; Visit Provider Family Medicine
DX: Z12.31 Encounter for screening mammogram for malignant neoplasm of breast (principal)
CPT/HCPCS: 77063; 77067